=== PATIENT | male | born 1950 | race American Indian/Alaskan Native ===

== ENCOUNTER 2018-11-26 16:49 | Emergency (ER) | payer MEDICARE ==
[2018-11-26 17:46] VITALS: BP 126/77
--- NOTE | 2018-11-26 21:14 | Emergency Department Report ---
ED Male HPI - General Chief complaint: Urogenital-Male Stated complaint: ABD PAIN/GROIN PAIN Time Seen by Provider: 11/26/18 20:52 Source: patient Mode of arrival: Ambulatory Limitations: No Limitations - History of Present Illness Initial comments: Mr. Rhodes is a 67 yo male with history of dyslipidemia, prostate cancer and indwelling Cisneros catheter who presents with irritation at his penis. He is concerned for blisters and swelling of the shaft. He recently had cisneros catheter changed 2-3 weeks ago at urgent care clinic. He is currently not being followed by urologist or oncologist. He is not seeking care through his personal family practitioner. He has recently refused oncological care for prostate cancer. He explains that his PSA is possibly 190 at this time. Denies fever. Denies Abdominal pain. He has inflamed lymph node in his left groin.. Complaint: other (penile blisters irritation) -: Gradual, week(s) (1) Location: penis Severity: mild Quality: burning Consistency: constant Improves with: none Worsens with: none indwelling catheter denies other symptoms - Related Data Previous Rx's Medication Instructions Recorded Last Taken Type traMADol [Ultram] 50 mg PO Q8H PRN #15 tablet 01/22/15 Unknown Rx Allergies Allergy/AdvReac Type Severity Reaction Status Date / Time No Known Allergies Allergy Verified 01/22/15 10:27 ED Review of Systems ROS: Stated complaint: ABD PAIN/GROIN PAIN Other details as noted in HPI Comment: All other systems reviewed and negative Constitutional: denies: malaise Cardiovascular: denies: chest pain Gastrointestinal: denies: abdominal pain Genitourinary: other (penile irritation) ED Past Medical Hx - Past Medical History Previous Medical History?: Yes Hx Hypertension: No Hx CVA: No Hx Heart Attack/AMI: No Hx Congestive Heart Failure: No Hx Diabetes: No Hx Deep Vein Thrombosis: No Hx Pulmonary Embolism: No Hx GERD: No Hx Liver Disease: No Hx Renal Disease: No Hx of Cancer: No Hx Sickle Cell Disease: No Hx Arthritis: No Hx Headaches / Migraines: No Hx Seizures: No Hx Kidney Stones: No Hx Psychiatric Treatment: No Hx Asthma: No Hx COPD: No Hx Tuberculosis: No Hx Dementia: No Hx HIV: No Additional medical history: High cholesterol - Surgical History Past Surgical History?: Yes Hx Coronary Stent: No Hx Open Heart Surgery: No Hx Pacemaker: No Hx Internal Defibrillator: No Hx Cholecystectomy: No Hx Appendectomy: No Hx Breast Surgery: No Additional Surgical History: Seed implant for prostate surgery - Social History Smoking Status: Never Smoker Substance Use Type: None - Medications Home Medications: Home Medications Medication Instructions Recorded Confirmed Last Taken Type traMADol [Ultram] 50 mg PO Q8H PRN #15 tablet 01/22/15 Unknown Rx ED Physical Exam - General Limitations: No Limitations General appearance: alert, in no apparent distress - Head Head exam: Present: atraumatic, normocephalic - Eye Eye exam: Present: normal appearance - ENT ENT exam: Present: mucous membranes moist - Neck Neck exam: Present: normal inspection, full ROM - Respiratory Respiratory exam: Present: normal lung sounds bilaterally. Absent: respiratory distress, wheezes, rales, rhonchi - Cardiovascular Cardiovascular Exam: Present: regular rate, normal rhythm, normal heart sounds. Absent: systolic murmur, diastolic murmur, rubs, gallop - GI/Abdominal GI/Abdominal exam: Present: soft, normal bowel sounds. Absent: distended, tenderness, guarding, rebound - Rectal Rectal exam: Present: deferred - exam: Present: normal inspection, other (clear urine in leg bag; no lesions or swelling of the shaft). Absent: testicular tenderness, urethral discharge, scrotal swelling, vertical testicular lie, circumcision External exam: Present: normal external exam - Extremities Exam Extremities exam: Present: normal inspection - Neurological Exam Neurological exam: Present: alert, oriented X3 - Psychiatric Psychiatric exam: Present: normal affect, normal mood - Skin Skin exam: Present: warm, dry, intact, normal color. Absent: rash ED Course Vital Signs 11/26/18 17:43 Temperature 98.5 F Pulse Rate 77 Respiratory 18 Rate Blood Pressure 126/77 Blood Pressure 126/77 [Right] O2 Sat by Pulse 98 Oximetry ED Medical Decision Making - Medical Decision Making Agapito presents with concerns of blisters irritation and swelling of his penis. Normal exam. He requested Cisneros catheter change. The catheter was changed 2-3 weeks ago. Mr. Rhodes requested cisneros catheter exchange. He desired to examine the tip of catheter for possible infection. I explained that the risk of complication is outweighed by the benefit of the examination of the catheter. I strongly evaluated encourage outpatient evaluation by urologist. Provided referral to urologist and outpatient medicine physician environmental epidemiologist. Critical care attestation.: If time is entered above; I have spent that time in minutes in the direct care of this critically ill patient, excluding procedure time. ED Disposition Clinical Impression: Indwelling Cisneros catheter present, History of prostate cancer Disposition: TO HOME OR SELFCARE Is pt being admited?: No Does the pt Need Aspirin: No Condition: Stable Additional Instructions: Please see our urologist next available appointment. Referrals: EVERETTE DELEON MD [Staff Physician] - 3-5 Days MEKHI JARRELL MD [Staff Physician] - 3-5 Days
== END 2018-11-26 21:25 | disposition home or self-care (01) ==
LOC: ED 16:49
DX: Z46.6 Encounter for fitting and adjustment of urinary device (principal); E78.00 Pure hypercholesterolemia, unspecified; Z85.46 Personal history of malignant neoplasm of prostate; Z79.899 Other long term (current) drug therapy

== ENCOUNTER 2019-01-19 16:39 | Emergency (ER) | payer MEDICARE ==
[~2019-01-19 16:39] MED LIST: EPINEPHrine 1:10,000 1 MG/10 ML SYRINGE ONE; SODIUM BICARB 8.4% 50 MEQ/50 ML SYRINGE IV ONE
--- NOTE | 2019-01-19 17:05 | Emergency Department Report ---
ED CPR HPI - General Stated Complaint: CARDIAC ARREST Time Seen by Provider: 01/19/19 17:00 Source: EMS Mode of arrival: Stretcher Limitations: Altered Mental Status, Physical Limitation - History of Present Illness Initial Comments: 68 yo Male presents to the hospital in cardiopulmonary arrest. Past medical history of prostate cancer. As per EMS patient was found down on the floor today and was last seen normal last night. EMS responded to the scene at 3:59 and received call approximately 10 minutes prior. Pt was in asystole upon EMS arrival. No bystander CPR was initiated. Patient was orally intubated, received 5 rounds of epinephrine and continued chest compressions and remained in asystole despite resuscitation efforts. Accu-Chek was not obtained. Complaint: found unresponsive - Related Data Previous Rx's Medication Instructions Recorded Last Taken Type traMADol [Ultram] 50 mg PO Q8H PRN #15 tablet 01/22/15 Unknown Rx Allergies Allergy/AdvReac Type Severity Reaction Status Date / Time No Known Allergies Allergy Verified 01/22/15 10:27 ED Review of Systems ROS: Stated complaint: CARDIAC ARREST Other details as noted in HPI Comment: All other systems reviewed and negative ED Past Medical Hx - Past Medical History Hx Hypertension: No Hx CVA: No Hx Heart Attack/AMI: No Hx Congestive Heart Failure: No Hx Diabetes: No Hx Deep Vein Thrombosis: No Hx Pulmonary Embolism: No Hx GERD: No Hx Liver Disease: No Hx Renal Disease: No Hx Sickle Cell Disease: No Hx Arthritis: No Hx Headaches / Migraines: No Hx Seizures: No Hx Kidney Stones: No Hx Psychiatric Treatment: No Hx Asthma: No Hx COPD: No Hx Tuberculosis: No Hx Dementia: No Hx HIV: No Additional medical history: High cholesterol - Surgical History Hx Coronary Stent: No Hx Open Heart Surgery: No Hx Pacemaker: No Hx Internal Defibrillator: No Hx Cholecystectomy: No Hx Appendectomy: No Hx Breast Surgery: No Additional Surgical History: Seed implant for prostate surgery - Social History Smoking Status: Never Smoker Substance Use Type: None - Medications Home Medications: Home Medications Medication Instructions Recorded Confirmed Last Taken Type traMADol [Ultram] 50 mg PO Q8H PRN #15 tablet 01/22/15 Unknown Rx ED Physical Exam - Other Other exam information: General: No acute distress Head: Atraumatic Eyes: Pupils fixed and dilated ENT: Orally intubated Neck: Normal appearance him a crepitus Chest: Spontaneous respirations, equal breath sounds with bagging CV: Pulseless Abdomen: Soft, distended : Indwelling penile Owens catheter Back: Normal inspection Extremity: No spontaneous movement Neuro: GCS equals 3 Psych: Unresponsive Skin: Pale ED Medical Decision Making - Medical Decision Making Pt presents to the hospital in asystole with 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 CPR continued upon arrival. accuCheck was 133. Patient receives an additional dose of epinephrine and 1 amp of sodium bicarbonate. Spite resuscitation efforts patient remained in asystole. Time of 16:31. In ed pt son informed of - Differential Diagnosis mi, arrhythmia, PE, CVA Critical Care Time: Yes Critical care time in (mins) excluding proc time.: 15 Critical care attestation.: If time is entered above; I have spent that time in minutes in the direct care of this critically ill patient, excluding procedure time. ED Disposition Clinical Impression: Cardiopulmonary arrest Disposition: DC-20 Is pt being admited?: No Condition: Stable Time of Disposition: 17:05
== END 2019-01-19 20:30 ==
LOC: ED 16:39
DX: I46.9 Cardiac arrest, cause unspecified (principal); E78.00 Pure hypercholesterolemia, unspecified; Z98.890 Other specified postprocedural states; Z79.899 Other long term (current) drug therapy
CPT/HCPCS: 82962; 92950; 99285; J0171